=== PATIENT | female | born 1940 | race Caucasian/White ===

== ENCOUNTER 2023-10-26 12:24 | Outpatient (REF) | payer MEDICARE, SELFPAY | END 2023-10-26 12:25 | disposition home or self-care (01) | LOC: HO.SH 12:24 | PROVIDERS: Visit Provider Internal Medicine | DX: Z01.118 Encounter for examination of ears and hearing with other abnormal findings (principal); H90.6 Mixed conductive and sensorineural hearing loss, bilateral | CPT/HCPCS: 92557; 92567 ==